=== PATIENT | male | born 1985 | race Caucasian/White ===

== ENCOUNTER 2020-11-10 03:26 | Emergency (ER) | payer SELFPAY ==
[2020-11-10 04:01] VITALS: BP 130/84; PULSE 92; RESP 16; TEMP 36.6; O2SAT 99; BMI 25.8
--- NOTE | 2020-11-10 04:07 | ED_ITS ---
HPI - Dental/Oral General Chief complaint: Dental/Oral Stated complaint: Dental pain Time Seen by Provider: 11/10/20 04:07 Source: patient Mode of arrival: ambulatory Limitations: no limitations History of Present Illness HPI Narrative: Patient care caries tooth left lower 1st premolar tooth number 21 weeks ago complaining of increased pain now. No fever no chills Teeth map: 1. Tender broken tooth Related Data Previous Rx's Medication Instructions Recorded oxycodone 5 mg PO Q6H PRN #20 tab 11/10/20 penicillin V potassium 500 mg PO QID #40 tab 11/10/20 Allergies Allergy/AdvReac Type Severity Reaction Status Date / Time No Known Allergies Allergy Verified 11/10/20 04:00 Review of Systems Review of Systems: Yes all other systems are reviewed and are negative [facility] Past Medical History Medical History No known health problems Social History Social History Advance Directives: No Advance Directives Information Provided: No Physical Exam Vital Signs: Vital Signs: Last Vital Signs Temp 97.9 F 11/10/20 04:01 Pulse 92 11/10/20 04:01 Resp 16 11/10/20 04:01 BP 130/84 11/10/20 04:01 Pulse Ox 99 11/10/20 04:01 Body Mass Index 25.8 Const: General: comfortable and no acute distress HENMT: Teeth image: 1. Caries broken tooth, sensitive to touch no gum swelling Resp: Effort & Inspection: normal respiratory effort Auscultation: clear to auscultation bilaterally Cardio: Palpation: normal PMI Rate: regular rate Rhythm: regular rhythm Heart sounds: S1 normal heart sound present and S2 normal heart sound present Discharge Plan Discharge Clinical Impression: Dental caries Patient Disposition: Home, Self-Care Instructions: Toothache (ED) Additional Instructions: Follow with dentist Take pain medication and antibiotic as prescribed Prescriptions: New oxycodone 5 mg tablet 5 mg PO Q6H PRN (Reason: Pain, Moderate) Qty: 20 RF: 0 penicillin V potassium 500 mg tablet 500 mg PO QID Qty: 40 RF: 0 Interventions: ED Discharge Assessment Last Done: 11/10/20 04:45 Discharge Date/Time: 11/10/20 04:46
[2020-11-10] MEDS: Penicillin V Potassium 250 MG TABLET 500 MG PO (04:25)
[2020-11-10] MEDS: oxyCODONE HCl Immed Release 5 MG TABLET PO (04:25)
== END 2020-11-10 04:46 | disposition home or self-care (01) ==
LOC: HO.ED 04:19
PROVIDERS: Emergency Provider Internal Medicine
DX: K02.9 Dental caries, unspecified (principal); Z79.899 Other long term (current) drug therapy
CPT/HCPCS: 99283

== ENCOUNTER 2021-01-30 13:26 | Emergency (ER) | payer SELFPAY ==
[2021-01-30 14:18] VITALS: BP 129/87; PULSE 88; RESP 16; TEMP 36.1; O2SAT 98; BMI 25.8
--- NOTE | 2021-01-30 17:39 | ED_ITS ---
HPI - Dental/Oral General Chief complaint: Dental/Oral Stated complaint: swollen mouth Time Seen by Provider: 01/30/21 14:48 Source: patient Mode of arrival: ambulatory Limitations: no limitations History of Present Illness MD Complaint: tooth pain Onset (ago): day(s) (Few days worse today) Duration: worsening Severity: severe Severity scale (1-10): >10 Relieving factors: prescription analgesics (Patient was also taking penicillin no symptomatic relief) and other (Patient reports he tried [id number] medication no symptomatic relief) Exacerbating factors: chewing Context: history of dental caries and poor dental care Associated symptoms: gum swelling Related Data Previous Rx's Medication Instructions Recorded oxycodone 5 mg tablet 5 mg PO Q6H PRN #20 tab 11/10/20 penicillin V potassium 500 mg 500 mg PO QID #40 tab 11/10/20 tablet acetaminophen 500 mg tablet 1,000 mg PO QID PRN #14 tab 01/30/21 (Tylenol Extra Strength) clindamycin HCl 300 mg capsule 600 mg PO TID 10 Days #60 cap 01/30/21 ibuprofen 800 mg tablet 800 mg PO Q8H PRN #14 tab 01/30/21 oxycodone 5 mg tablet 5 mg PO BID PRN #10 tab 01/30/21 Allergies Allergy/AdvReac Type Severity Reaction Status Date / Time No Known Allergies Allergy Verified 11/10/20 04:00 Review of Systems Review of Systems: Constitutional : No Fever, No Chills, No changes in PO intake, No difficulty speaking, no recent dental procedure, no heat or cold intolerance while eating, no recent face trauma, ENT/Mouth : + Dental pain with left lower facial swelling, No Sore throat, No Jaw pain, No throat swelling, No swallowing difficulty, no change in voice, No facial swelling, no drooling, no trismus, no bleeding, no lacerations, no tongue swelling, gum swelling, Eyes: No Eye Pain, No periorbital Swelling Cardiovascular : No Chest Pain, No SOB Respiratory : No Cough, No Sputum, No Wheezing, No Smoke Exposure, No Dyspnea Gastrointestinal : No Nausea, No Vomiting, No Diarrhea Genitourinary : No Dysuria Musculoskeletal : No Myalgias Skin : No rash, no facial swelling or redness, Neuro : No Weakness, No Numbness, No Headache Yes all other systems are reviewed and are negative [facility] Past Medical History Attestation statement: The following information was validated with the patient. Medical History No known health problems Social History Social History Advance Directives: No Advance Directives Information Provided: No Physical Exam Vital Signs: Vital Signs: Last Vital Signs Temp 97.0 F 01/30/21 14:18 Pulse 88 01/30/21 14:18 Resp 16 01/30/21 14:18 BP 129/87 01/30/21 14:18 Pulse Ox 98 01/30/21 14:18 Body Mass Index 25.8 vital signs have been reviewed as normal and appeared to be correct. Blood pressure normal. Heart rate normal. Respiration rate normal. Temperature normal. Oxygen saturation normal. Appearance: Alert. Oriented X3. No acute distress. Head: Normal external exam. Normocephalic. Atraumatic. Eyes: PERRLA. EOMI. Conjunctiva and sclera normal. Eyelids normal. ENT: EAC normal. TM's Normal. Pharynx normal. Uvula midline. Moist mucous membranes. No trismus noted. No drooling noted. No muffled voice noted. Dentition: Patient with poor dentition throughout with multiple old fractured teeth with multiple dental caries. To left lower gingiva patient has fluctuance with draining purulent discharge already noted. Otherwise the rest of the intraoral exam is within normal limits. Not consistent with peritonsillar abscess. No salivary duct obstruction noted. Neck: Normal inspection. Neck supple. FROM. No adenopathy. Thyroid Normal. No meningeal signs. No neck mass noted. Trachea midline. CVS: Normal heart rate and rhythm. Heart sound normal. No murmurs noted. Pulses normal throughout. Respiratory: No respiratory distress. Painless inspiration. Breath sounds normal. No wheezes/rales/rhonchi noted. Chest nontender. No accessory muscle usage noted or decreased air movement noted. Back: Full range of motion noted. Skin: Skin warm and dry. Normal skin color. Normal skin turgor. No rashe s/lesions/lacerations noted. Extremities:Extremities exhibit normal range of motion. Extremities nontender. Neuro: Oriented X 3. No motor deficit. No sensory deficit. Reflexes normal. Course Course Course Narrative: Patient is now status post I and D of dental abscess with needle drainage. Patient tolerated procedure well. No complications. Will DC home with clindamycin and symptomatic treatment instructions to follow-up with dentist. Patient understands agrees with this plan. [facility] - Dental/Oral Medical Records Attestation: I reviewed the patient's medical records. Discharge Plan Discharge Clinical Impression: Toothache, Dental caries, Gingival abscess Patient Disposition: Home, Self-Care Instructions: Dental Abscess (ED) Prescriptions: New clindamycin HCl 300 mg capsule 600 mg PO TID 10 Days Qty: 60 RF: 0 ibuprofen 800 mg tablet 800 mg PO Q8H PRN (Reason: pain) Qty: 14 RF: 0 acetaminophen [Tylenol Extra Strength] 500 mg tablet 1,000 mg PO QID PRN (Reason: fever or pain) Qty: 14 RF: 0 oxycodone 5 mg tablet 5 mg PO BID PRN (Reason: pain) Qty: 10 RF: 0 No Action oxycodone 5 mg tablet 5 mg PO Q6H PRN (Reason: Pain, Moderate) Qty: 20 RF: 0 penicillin V potassium 500 mg tablet 500 mg PO QID Qty: 40 RF: 0 Referrals: Physician,None [Primary Care Provider] - 2 days (Your dentist/oral surgeon) Stand Alone Forms: Work/School Release Interventions: LWBS Worksheet Last Done: 01/30/21 14:54 Print Language: Spanish
[2021-01-30] MEDS: Ibuprofen 800 MG TABLET PO (18:01)
[2021-01-30] MEDS: oxyCODONE HCl Immed Release 5 MG TABLET PO (18:02)
[2021-01-30] MEDS: Clindamycin HCL 300 MG CAPSULE 600 MG PO (18:02)
== END 2021-01-30 18:12 | disposition home or self-care (01) ==
PROVIDERS: Emergency Provider Emergency Medicine Emergency Medical Services
DX: K02.9 Dental caries, unspecified (principal); K04.7 Periapical abscess without sinus; Z79.899 Other long term (current) drug therapy
CPT/HCPCS: 41800; 99283

== ENCOUNTER 2021-03-28 09:26 | Outpatient (REF) | payer OTHER, SELFPAY | END 2021-03-28 09:27 | disposition home or self-care (01) | LOC: HO.LAB 09:26 | PROVIDERS: Visit Provider Internal Medicine | DX: Z20.822 Contact with and (suspected) exposure to COVID-19 (principal) | CPT/HCPCS: C9803; U0003; U0005 ==

== ENCOUNTER 2021-07-06 12:01 | Outpatient (REF) | payer OTHER, SELFPAY ==
[2021-07-06 13:32] LABS: Binax Internal Control QC Valid; Binax Now Covid-19 Ag Negative (Negative)
== END 2021-07-06 12:02 | disposition home or self-care (01) ==
LOC: HO.LAB 12:01
PROVIDERS: Visit Provider Internal Medicine
DX: Z20.822 Contact with and (suspected) exposure to COVID-19 (principal)
CPT/HCPCS: 36415; C9803

== ENCOUNTER → 2022-03-18 11:02 | Outpatient (BNVA) | payer OTHER, SELFPAY | PROVIDERS: Visit Provider Physician Assistant Medical | DX: S90.32XA Contusion of left foot, initial encounter (principal); W20.8XXA Other cause of strike by thrown, projected or falling object, initial encounter | CPT/HCPCS: 73600; 73630; 99203 ==

== ENCOUNTER → 2022-03-21 12:54 | Outpatient (BNVA) | payer OTHER, SELFPAY | PROVIDERS: Visit Provider Internal Medicine | DX: S90.32XA Contusion of left foot, initial encounter (principal); W20.8XXA Other cause of strike by thrown, projected or falling object, initial encounter | CPT/HCPCS: 99213 ==

== ENCOUNTER → 2022-03-25 08:25 | Outpatient (BNVA) | payer OTHER, SELFPAY | PROVIDERS: Visit Provider Internal Medicine | DX: S90.32XA Contusion of left foot, initial encounter (principal); W20.8XXA Other cause of strike by thrown, projected or falling object, initial encounter | CPT/HCPCS: 99213 ==

== ENCOUNTER → 2022-03-28 09:04 | Outpatient (BNVA) | payer OTHER, SELFPAY | PROVIDERS: Visit Provider Internal Medicine | DX: S90.32XA Contusion of left foot, initial encounter (principal); W20.8XXA Other cause of strike by thrown, projected or falling object, initial encounter | CPT/HCPCS: 99213 ==

== ENCOUNTER → 2022-08-16 15:00 | Outpatient (BNVA) | payer OTHER, SELFPAY | PROVIDERS: Visit Provider Physician Assistant | DX: S39.012A Strain of muscle, fascia and tendon of lower back, initial encounter (principal); X50.0XXA Overexertion from strenuous movement or load, initial encounter | CPT/HCPCS: 99203 ==

== ENCOUNTER → 2022-08-22 09:33 | Outpatient (BNVA) | payer OTHER, SELFPAY | PROVIDERS: Visit Provider Physician Assistant | DX: S39.012A Strain of muscle, fascia and tendon of lower back, initial encounter (principal); X50.0XXA Overexertion from strenuous movement or load, initial encounter | CPT/HCPCS: 99213 ==